=== PATIENT | male | born 1995 ===

== ENCOUNTER 2017-04-27 23:58 | Emergency (ER) | payer MEDICAID ==
[2017-04-28 00:13] VITALS: O2SAT 98
[2017-04-28] MEDS ORDERED: Aspirin 325 mg EC Tablets PO STA (00:23)
[2017-04-28] MEDS ORDERED: Aspirin 325 mg EC Tablets PO ONE (00:40)
[2017-04-28 00:56] LABS: SQUAMOUS EPITHIAL < 1 /hpf (0-5); URINE BILIRUBIN NEGATIVE (NEGATIVE); URINE BLOOD NEGATIVE (NEGATIVE); URINE CLARITY Clear (Clear); URINE COLOR Yellow (YELLOW); URINE GLUCOSE (UA) NORMAL (Normal); URINE LEUKOCYTE ESTERASE NEG Leu/uL (Negative); URINE NITRATE NEGATIVE (NEGATIVE); URINE PROTEIN NEGATIVE (NEGATIVE); URINE UROBILINOGEN NORMAL mg/dL (0.2-1.0)
[2017-04-28 01:15] LABS: BASO # 0.1 K/uL (0.0-0.2); BASO % 0.7 % (0.0-2.0); EOS # 0.4 K/uL (0.0-0.7); HEMOGLOBIN 14.4 g/dL (12.0-18.0); LYMPH # 2.9 K/uL (1.0-4.3); LYMPH % 24.4 % (20.0-40.0); MEAN CELL VOLUME 90.5 fL (80.0-94.0); MEAN CORPUSCULAR HEMOGLOBIN 30.4 pg (27.0-31.0); MEAN CORPUSCULAR HGB CONC 33.6 g/dL (33.0-37.0); MEAN PLATELET VOLUME 7.8 fL (7.2-11.7); MONO % 8.4 % (0.0-10.0); NEUT # 7.5 K/uL (1.8-7.0); NEUT % 63.5 % (50.0-75.0); NRBC % 0.1 % (0.0-2.0); RBC 4.74 Mil/uL (4.40-5.90); RED CELL DISTRIBUTION WIDTH 12.7 % (11.5-14.5); WHITE BLOOD COUNT 11.8 K/uL (4.8-10.8)
[2017-04-28 01:25] LABS: GFR AFRICAN-AMERICAN > 60; GFR NON-AFRICAN AMERICAN > 60
[2017-04-28 01:26] LABS: BARBITURATES, UR NEGATIVE (NEGATIVE)
[2017-04-28 01:26] LABS: ALT/SGPT 26 U/L (21-72); AST/SGOT 31 U/L (17-59); BLOOD UREA NITROGEN 15 mg/dL (9-20); CALCIUM 9.5 mg/dl (8.6-10.4)
[2017-04-28 01:27] LABS: BENZODIAZEPINES, UR NEGATIVE (NEGATIVE)
[2017-04-28 01:30] LABS: OPIATES, UR NEGATIVE (NEGATIVE); PHENCYCLIDINE, UR NEGATIVE (NEGATIVE)
[2017-04-28 01:37] LABS: B-TYPE NATRIURETIC PEPTIDE 26.5 pg/mL (0-450)
--- NOTE | 2017-04-28 01:38 | C.PDOC ---
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 Patient denies any Hx of cardiac problems, nausea, or vomiting. Time Seen by Provider: 04/28/17 00:20 Chief Complaint (Nursing): Chest Pain History Per: Patient History/Exam Limitations: no limitations Onset/Duration Of Symptoms: Days (7) Current Symptoms Are (Timing): Still Present Associated Symptoms: Dyspnea, Syncope (Near). denies: Nausea Modifying Factors: None Exacerbating Factors: None Alleviating Factors: None Recent travel outside of the [place]: No Past Medical History Reviewed: Historical Data, Nursing Documentation, Vital Signs Vital Signs: Last Vital Signs Temp 97.9 F 04/28/17 00:11 Pulse 92 H 04/28/17 03:00 Resp 18 04/28/17 03:00 BP 119/56 L 04/28/17 03:00 Pulse Ox 98 04/28/17 03:20 - Medical History PMH: No Chronic Diseases Surgical History: No Surg Hx Family History: States: Unknown Family Hx - Social History Hx Alcohol Use: Yes Hx Substance Use: No - Immunization History Hx Tetanus Toxoid Vaccination: No Hx Influenza Vaccination: No Hx Pneumococcal Vaccination: No Review Of Systems Cardiovascular: Positive for: Chest Pain Respiratory: Positive for: Shortness of Breath Gastrointestinal: Negative for: Nausea, Vomiting Neurological: Positive for: Other (Near syncope) Physical Exam - Physical Exam Appears: Non-toxic, Other (Morbidly obese) Skin: Normal Color, Warm, Dry Head: Atraumatic, Normacephalic Oral Mucosa: Moist Chest: Symmetrical, No Tenderness Cardiovascular: Rhythm Regular, No Murmur Respiratory: Normal Breath Sounds, No Rales, No Rhonchi, No Wheezing Gastrointestinal/Abdominal: Soft, No Tenderness Extremity: Normal ROM, No Tenderness, No Pedal Edema Neurological/Psych: Oriented x3, Normal Speech, Normal Cognition ED Course And Treatment - Laboratory Results Result Diagrams: 04/28/17 01:04 04/28/17 01:04 Lab Interpretation: Abnormal (mild leukocytosis, d-dimer neg.) ECG: Interpreted By Me ECG Rhythm: Sinus Rhythm ECG Interpretation: Normal Rate From EC O2 Sat by Pulse Oximetry: 98 Pulse Ox Interpretation: Normal - Radiology CXR: Interpreted by Me CXR Interpretation: Yes: No Acute Disease, Cardiomegaly Progress Note: EKG and CXR ordered. Ecotrin and lovenox administered. Repeat EKG at 05:00 shows NSR 76 bpm Reevaluation Time: 02:02 Reassessment Condition: Improved - Physician Consult Information Outcome Of Conversation: 0200: d/w Dr. Stone and rosie Frederick to tele Obs Medical Decision Making Medical Decision Making: asa and lovenox given presume LVH from from chronic HTN and RVH from prob ELINOR high risk for acute cardiac with morbid obesity 158 kg. Plan stress test or equivelent eval and treat for ELINOR Disposition Doctor Will See Patient In The: Hospital Counseled Patient/Family Regarding: Studies Performed, Diagnosis - Disposition Disposition: HOSPITALIZED Disposition Time: 02:03 Condition: GOOD - Clinical Impression Clinical Impression: Chest pain, Near syncope - Scribe Statement The provider has reviewed the documentation as recorded by the Scribe Damion Ku All medical record entries made by the Scribe were at my direction and personally dictated by me. I have reviewed the chart and agree that the record accurately reflects my personal performance of the history, physical exam, medical decision making, and the department course for this patient. I have also personally directed, reviewed, and agree with the discharge instructions and disposition.
[2017-04-28 01:44] LABS: PARTIAL THROMBOPLASTIN TIME 30 SECONDS (21-34); PROTHROMBIN TIME 11.7 SECONDS (9.7-12.2)
[2017-04-28 01:49] LABS: D DIMER < 200 ng/mlDDU (0-243)
[2017-04-28] MEDS ORDERED: Enoxaparin 40 mg Syringe SC STA (01:55)
[2017-04-28] MEDS ORDERED: Enoxaparin 60 mg Syringe ONE (02:03)
--- NOTE | 2017-04-28 02:20 | CP.PCM.HP ---
History of Present Illness - History of Present Illness History of Present Illness: Medicine Note CC: chest pain HPI: 21M with no significant PMHx presents to the ED with chest pain. 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 Patient works moving packages off of trucks. While he was lifting the box, he started to have midsternal chest pain, sharp in nature, non- radiating. Pain lasted for 2-5 minutes and subsided. Denied any associated dizziness, lightheadedness, syncope , diaphoresis. Patient reports he had this pain a few months back but it subsided and he did not come to the hospital for it. Denied fever, chills, headache, chest pain, abdominal pain, n/v/d/c, or urinary symptoms. PMHx: Denied PSHx: Denied Meds: Denied All: NKDA SHx: Denied any tobacco, drinks alcohol socially, denied illicit drug use FHx: Unremarkable Present on Admission - Present on Admission Any Indicators Present on Admission: No Review of Systems - Constitutional Constitutional: absent: Chills, Weakness - EENT Eyes: absent: Change in Vision Ears: absent: Tinnitus Nose/Mouth/Throat: absent: Nasal Discharge - Cardiovascular Cardiovascular: absent: Chest Pain, Chest Pain at Rest - Respiratory Respiratory: absent: Cough, Dyspnea - Gastrointestinal Gastrointestinal: absent: Abdominal Pain, Nausea, Vomiting - Genitourinary Genitourinary: absent: Dysuria, Hematuria - Musculoskeletal Musculoskeletal: absent: Back Pain - Integumentary Integumentary: absent: Alopecia, Skin Pain, Wounds - Neurological Neurological: absent: Syncope, Weakness - Psychiatric Psychiatric: absent: Anxiety - Endocrine Endocrine: absent: Polyphagia, Polyuria - Hematologic/Lymphatic Hematologic: absent: Easy Bleeding, Easy Bruising Past Patient History - Past Social History Smoking Status: Heavy Smoker > 10 Cigarettes Daily - PSYCHIATRIC Hx Substance Use: No - SURGICAL HISTORY Hx Surgeries: No Meds Allergies/Adverse Reactions: Allergies Allergy/AdvReac Type Severity Reaction Status Date / Time kiwi Allergy Verified 04/28/17 00:16 Penicillins Allergy Verified 04/28/17 00:16 walnut Allergy Verified 04/28/17 00:16 Physical Exam - Constitutional Appears: No Acute Distress - Head Exam Head Exam: NORMAL INSPECTION, NORMOCEPHALIC - Eye Exam Eye Exam: EOMI, Normal appearance, PERRL - ENT Exam ENT Exam: Mucous Membranes Moist - Respiratory Exam Respiratory Exam: Clear to Auscultation Bilateral, NORMAL BREATHING PATTERN. absent: Wheezes - Cardiovascular Exam Cardiovascular Exam: REGULAR RHYTHM, RRR, +S1, +S2 - GI/Abdominal Exam GI & Abdominal Exam: Normal Bowel Sounds, Soft. absent: Distended, Tenderness - Extremities Exam Extremities exam: Positive for: normal inspection. Negative for: pedal edema, tenderness, pedal pulses present - Neurological Exam Neurological exam: Alert, CN II-XII Intact, Oriented x3 - Skin Skin Exam: Dry, Intact, Normal Color, Warm Results - Vital Signs Recent Vital Signs: Last Vital Signs Temp 97.9 F 04/28/17 00:11 Pulse 92 H 04/28/17 00:25 Resp 19 04/28/17 00:25 BP 128/56 L 04/28/17 00:30 Pulse Ox 98 04/28/17 02:04 - Labs Result Diagrams: 04/28/17 01:04 04/28/17 01:04 Labs: Laboratory Results - last 24 hr 04/28/17 04/28/17 04/28/17 00:47 00:47 01:04 WBC 11.8 H RBC 4.74 Hgb 14.4 Hct 42.9 MCV 90.5 MCH 30.4 MCHC 33.6 RDW 12.7 Plt Count 272 MPV 7.8 Neut % (Auto) 63.5 Lymph % (Auto) 24.4 [place] % (Auto) 8.4 Eos % (Auto) 3.0 Baso % (Auto) 0.7 Neut # 7.5 H Lymph # 2.9 [place] # 1.0 H Eos # 0.4 Baso # 0.1 PT INR APTT D-Dimer, Quantitative Sodium Potassium Chloride Carbon Dioxide Anion Gap BUN Creatinine Est GFR ( Amer) Est GFR (Non-Af Amer) Random Glucose Calcium Total Bilirubin AST ALT Alkaline Phosphatase Troponin I NT-Pro-B Natriuret Pep Total Protein Albumin Globulin Albumin/Globulin Ratio Urine Color Yellow Urine Clarity Clear Urine pH 5.0 Ur Specific [place] 1.021 Urine Protein Negative Urine Glucose (UA) Normal Urine Ketones Negative Urine Blood Negative Urine Nitrate Negative Urine Bilirubin Negative Urine Urobilinogen Normal Ur Leukocyte Esterase Neg Urine WBC (Auto) 1 Urine RBC (Auto) < 1 Ur Squamous Epith Cells < 1 Urine Opiates Screen Negative Urine Methadone Screen Negative Ur Barbiturates Screen Negative Ur Phencyclidine Scrn Negative Ur Amphetamines Screen Negative U Benzodiazepines Scrn Negative U Oth Cocaine Metabols Negative U Cannabinoids Screen Negative 04/28/17 04/28/17 01:04 01:04 WBC RBC Hgb Hct MCV MCH MCHC RDW Plt Count MPV Neut % (Auto) Lymph % (Auto) [place] % (Auto) Eos % (Auto) Baso % (Auto) Neut # Lymph # [place] # Eos # Baso # PT 11.7 INR 1.0 APTT 30 D-Dimer, Quantitative < 200 Sodium 141 Potassium 4.3 Chloride 104 Carbon Dioxide 27 Anion Gap 14 BUN 15 Creatinine 1.0 Est GFR ( Amer) > 60 Est GFR (Non-Af Amer) > 60 Random Glucose 91 Calcium 9.5 Total Bilirubin 0.9 AST 31 ALT 26 Alkaline Phosphatase 97 Troponin I < 0.0120 NT-Pro-B Natriuret Pep 26.5 Total Protein 7.9 Albumin 4.0 Globulin 3.9 Albumin/Globulin Ratio 1.0 Urine Color Urine Clarity Urine pH Ur Specific [place] Urine Protein Urine Glucose (UA) Urine Ketones Urine Blood Urine Nitrate Urine Bilirubin Urine Urobilinogen Ur Leukocyte Esterase Urine WBC (Auto) Urine RBC (Auto) Ur Squamous Epith Cells Urine Opiates Screen Urine Methadone Screen Ur Barbiturates Screen Ur Phencyclidine Scrn Ur Amphetamines Screen U Benzodiazepines Scrn U Oth Cocaine Metabols U Cannabinoids Screen Assessment & Plan - Assessment and Plan (Free Text) Assessment: 21M with no significant PMHx presents to the ED with chest pain. Plan: Chest Pain r/o ACS * EKG: NSR * 1st ROSY - negative, BNP -WNL * TSH, T3, Lipid panel - except HDL which is 29, Hgba1c - WNL * F/U ROMIs, EKG, ECHO Morbid Obesity Prophylactic Measures * GI PPX: Protonix 40mg PO daily * DVT PPX: SCDs, lovenox 40mg SC daily DW Stewart Evangelista DO, PGY-1
[2017-04-28 03:46] VITALS: RESP 18
[2017-04-28 05:18] LABS: MAGNESIUM 1.9 mg/dL (1.6-2.3)
[2017-04-28 05:49] LABS: T3 1.86 nmol/L (1.49-2.60)
--- NOTE | 2017-04-28 09:31 | RAD ---
PROCEDURE: CHEST RADIOGRAPH, 1 VIEW HISTORY: Shortness of breath COMPARISON: None available. FINDINGS: LUNGS: Mild venous congestion. Mild right hilar prominence. PLEURA: No pneumothorax or pleural fluid seen. CARDIOVASCULAR: Normal. OSSEOUS STRUCTURES: No significant abnormalities. VISUALIZED UPPER ABDOMEN: Normal. OTHER FINDINGS: None. IMPRESSION: Mild venous congestion. Mild right hilar prominence.
[2017-04-28] MEDS ORDERED: Pantoprazole 40 mg EC Tab PO SCH (10:00)
[2017-04-28] MEDS ORDERED: Enoxaparin 40 mg Syringe SC SCH (10:00)
[2017-04-28] MEDS ORDERED: Albuterol-Ipratrop 3 mg / 0.5 (3 ml) UD INH STA (10:19)
[2017-04-28 10:49] LABS: MAGNESIUM 2.1 mg/dL (1.6-2.3)
[2017-04-28 10:57] LABS: CK-MB 1.85 ng/mL (0.0-3.38)
[2017-04-28] MEDS ORDERED: Albuterol-Ipratrop 3 mg / 0.5 (3 ml) UD ONE (11:11)
[2017-04-28 12:17] LABS: ALBUMIN 3.7 g/dL (3.5-5.0)
[2017-04-28] MEDS ORDERED: Enoxaparin 40 mg Syringe ONE (12:18)
[2017-04-28] MEDS ORDERED: Pantoprazole 40 mg EC Tab PO ONE (12:18)
[2017-04-28 12:20] LABS: AST/SGOT 52 U/L (17-59); BLOOD UREA NITROGEN 15 mg/dL (9-20); GFR AFRICAN-AMERICAN > 60; GFR NON-AFRICAN AMERICAN > 60
[2017-04-28 12:21] LABS: ALT/SGPT 28 U/L (21-72); CALCIUM 8.8 mg/dl (8.6-10.4)
--- NOTE | 2017-04-28 16:49 | CARD ---
APPROVED REPORT EXAM: Two-dimensional and M-mode echocardiogram with Doppler and color Doppler. Other Information Quality : GoodRhythm : NSR INDICATION Chest Pain Syncope RISK FACTORS Obesity M-Mode DIMENSIONS RVDd1.77 (2.1-3.2cm)Left Atrium (MM)3.71 (2.5-4.0cm) IVSd1.18 (0.7-1.1cm)Aortic Root3.24 (2.2-3.7cm) LVDd5.20 (4.0-5.6cm)Aortic Cusp Exc.1.87 (1.5-2.0cm) PWd1.18 (0.7-1.1cm)FS (%) 30 % LVDs3.61 (2.0-3.8cm)LVEF (%)58 (>50%) Mitral Valve MV E Tgspyzqu162.5cm/sMV A Zjfkgkdh16.7cm/sE/A ratio2.1 TDI E/Lateral E'0.0E/Medial E'0.0 Tricuspid Valve TR Peak Aswqusox678kw/sTR Peak Gr.[id number] LEFT VENTRICLE The left ventricle is normal size. There is normal left ventricular wall thickness. The left ventricular function is normal. The left ventricular ejection fraction is within the normal range. There is normal LV segmental wall motion. The left ventricular diastolic function is normal. RIGHT VENTRICLE The right ventricle is normal size. There is normal right ventricular wall thickness. The right ventricular systolic function is normal. ATRIA The left atrium size is normal. The right atrium size is normal. AORTIC VALVE The aortic valve is normal in structure. No aortic regurgitation is present. MITRAL VALVE The mitral valve is normal in structure. GREAT VESSELS The aortic root is normal in size. The IVC is normal in size and collapses >50% with inspiration. <Conclusion> The left ventricle is normal size. There is normal left ventricular wall thickness. The left ventricular function is normal. The left ventricular ejection fraction is within the normal range. There is normal LV segmental wall motion. The left ventricular diastolic function is normal.
[2017-04-28 17:32] VITALS: BP 132/80; PULSE 71; TEMP 98.1
--- NOTE | 2017-04-28 18:24 | CP.PCM.DIS ---
Provider - Provider Date of Admission: 04/28/17 01:58 Attending physician: Baudilio Stone Jr, MD Time Spent in preparation of Discharge (in minutes): 45 Diagnosis - Discharge Diagnosis (1) Chest pain Status: Resolved Comment: see summary for full details Hospital Course - Lab Results Lab Results: Most Recent Lab Values WBC 11.8 K/uL (4.8-10.8) H 04/28/17 01:04 RBC 4.74 Mil/uL (4.40-5.90) 04/28/17 01:04 Hgb 14.4 g/dL (12.0-18.0) 04/28/17 01:04 Hct 42.9 % (35.0-51.0) 04/28/17 01:04 MCV 90.5 fL (80.0-94.0) 04/28/17 01:04 MCH 30.4 pg (27.0-31.0) 04/28/17 01:04 MCHC 33.6 g/dL (33.0-37.0) 04/28/17 01:04 RDW 12.7 % (11.5-14.5) 04/28/17 01:04 Plt Count 272 K/uL (130-400) 04/28/17 01:04 MPV 7.8 fL (7.2-11.7) 04/28/17 01:04 Neut % (Auto) 63.5 % (50.0-75.0) 04/28/17 01:04 Lymph % (Auto) 24.4 % (20.0-40.0) 04/28/17 01:04 [place] % (Auto) 8.4 % (0.0-10.0) 04/28/17 01:04 Eos % (Auto) 3.0 % (0.0-4.0) 04/28/17 01:04 Baso % (Auto) 0.7 % (0.0-2.0) 04/28/17 01:04 Neut # 7.5 K/uL (1.8-7.0) H 04/28/17 01:04 Lymph # 2.9 K/uL (1.0-4.3) 04/28/17 01:04 [place] # 1.0 K/uL (0.0-0.8) H 04/28/17 01:04 Eos # 0.4 K/uL (0.0-0.7) 04/28/17 01:04 Baso # 0.1 K/uL (0.0-0.2) 04/28/17 01:04 PT 11.7 SECONDS (9.7-12.2) 04/28/17 01:04 INR 1.0 04/28/17 01:04 APTT 30 SECONDS (21-34) 04/28/17 01:04 D-Dimer, Quantitative < 200 ng/mlDDU (0-243) 04/28/17 01:04 Sodium 137 mmol/L (132-148) 04/28/17 10:21 Potassium 3.8 mmol/L (3.6-5.2) 04/28/17 10:21 Chloride 101 mmol/L (98-107) 04/28/17 10:21 Carbon Dioxide 24 mmol/L (22-30) 04/28/17 10:21 Anion Gap 15 (10-20) 04/28/17 10:21 BUN 15 mg/dL (9-20) 04/28/17 10:21 Creatinine 0.8 MG/DL (0.8-1.5) 04/28/17 10:21 Est GFR ( Amer) > 60 04/28/17 10:21 Est GFR (Non-Af Amer) > 60 04/28/17 10:21 Random Glucose 96 mg/dL (75-110) 04/28/17 10:21 Hemoglobin A1c 5.5 % (4.2-6.5) 04/28/17 04:53 Calcium 8.8 mg/dl (8.6-10.4) 04/28/17 10:21 Phosphorus 3.7 mg/dL (2.5-4.5) 04/28/17 10:21 Magnesium 2.1 mg/dL (1.6-2.3) 04/28/17 10:21 Total Bilirubin 1.3 mg/dL (0.2-1.3) 04/28/17 10:21 AST 52 U/L (17-59) 04/28/17 10:21 ALT 28 U/L (21-72) 04/28/17 10:21 Alkaline Phosphatase 93 U/L (38-126) 04/28/17 10:21 Total Creatine Kinase 336 U/L (55-170) H 04/28/17 10:21 CK-MB (Mass) 1.85 ng/mL (0.0-3.38) 04/28/17 10:21 Troponin I < 0.0120 ng/mL (0.00-0.120) 04/28/17 01:04 Troponin I, Quant < 0.0120 ng/mL (0.00-0.120) 04/28/17 10:21 NT-Pro-B Natriuret Pep 26.5 pg/mL (0-450) 04/28/17 01:04 Total Protein 7.5 g/dL (6.3-8.3) 04/28/17 10:21 Albumin 3.7 g/dL (3.5-5.0) 04/28/17 10:21 Globulin 3.8 gm/dL (2.2-3.9) 04/28/17 10:21 Albumin/Globulin Ratio 1.0 (1.0-2.1) 04/28/17 10:21 Triglycerides 88 mg/dL (0-149) 04/28/17 04:53 Cholesterol 171 mg/dL (0-199) 04/28/17 04:53 LDL Cholesterol Direct 127 mg/dL (0-129) 04/28/17 04:53 HDL Cholesterol 29 mg/dL (30-70) L 04/28/17 04:53 Total T3 1.86 nmol/L (1.49-2.60) 04/28/17 04:53 TSH 3rd Generation 0.88 mIU/L (0.46-4.68) 04/28/17 04:53 Urine Color Yellow (YELLOW) 04/28/17 00:47 Urine Clarity Clear (Clear) 04/28/17 00:47 Urine pH 5.0 (5.0-8.0) 04/28/17 00:47 Ur Specific [place] 1.021 (1.003-1.030) 04/28/17 00:47 Urine Protein Negative mg/dL (NEGATIVE) 04/28/17 00:47 Urine Glucose (UA) Normal mg/dL (Normal) 04/28/17 00:47 Urine Ketones Negative mg/dL (NEGATIVE) 04/28/17 00:47 Urine Blood Negative (NEGATIVE) 04/28/17 00:47 Urine Nitrate Negative (NEGATIVE) 04/28/17 00:47 Urine Bilirubin Negative (NEGATIVE) 04/28/17 00:47 Urine Urobilinogen Normal mg/dL (0.2-1.0) 04/28/17 00:47 Ur Leukocyte Esterase Neg [place]/uL (Negative) 04/28/17 00:47 Urine WBC (Auto) 1 /hpf (0-5) 04/28/17 00:47 Urine RBC (Auto) < 1 /hpf (0-3) 04/28/17 00:47 Ur Squamous Epith Cells < 1 /hpf (0-5) 04/28/17 00:47 Urine Opiates Screen Negative (NEGATIVE) 04/28/17 00:47 Urine Methadone Screen Negative (NEGATIVE) 04/28/17 00:47 Ur Barbiturates Screen Negative (NEGATIVE) 04/28/17 00:47 Ur Phencyclidine Scrn Negative (NEGATIVE) 04/28/17 00:47 Ur Amphetamines Screen Negative (NEGATIVE) 04/28/17 00:47 U Benzodiazepines Scrn Negative (NEGATIVE) 04/28/17 00:47 U Oth Cocaine Metabols Negative (NEGATIVE) 04/28/17 00:47 U Cannabinoids Screen Negative (NEGATIVE) 04/28/17 00:47 - Hospital Course Hospital Course: "CC: chest pain HPI: 21M with no significant PMHx presents to the ED with chest pain. 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 Patient works moving packages off of trucks. While he was lifting the box, he started to have midsternal chest pain, sharp in nature, non-radiating. Pain lasted for 2-5 minutes and subsided. Denied any associated dizziness, lightheadedness, syncope , diaphoresis. Patient reports he had this pain a few months back but it subsided and he did not come to the hospital for it. Denied fever, chills, headache, chest pain, abdominal pain, n/v/d/c, or urinary symptoms." In ED patient's EKG was NSR. Patient had two negative troponins. Patient was given duonebs for mild expiratory wheezing. Patient felt much better after. Patient was able to eat and chest pain subsided. Patient cleared for discharge as per Dr. Stone. Patient to come back to Emergency Room immediately if symptoms worsen/return. This is a summary of the hospital course. Please see chart for full details. Discharge Exam - Head Exam Head Exam: NORMAL INSPECTION, NORMOCEPHALIC - Eye Exam Eye Exam: EOMI, Normal appearance, PERRL - ENT Exam ENT Exam: Mucous Membranes Moist - Neck Exam Neck exam: Full Rom - Respiratory Exam Respiratory Exam: Clear to PA & Lateral, NORMAL BREATHING PATTERN. absent: Rales, Rhonchi, Wheezes, Respiratory Distress, Stridor - Cardiovascular Exam Cardiovascular Exam: REGULAR RHYTHM, RRR. absent: Systolic Murmur - GI/Abdominal Exam GI & Abdominal Exam: Normal Bowel Sounds. absent: Distended, Firm, Guarding - Extremities Exam Extremities exam: full ROM, normal inspection - Back Exam Back exam: NORMAL INSPECTION - Neurological Exam Neurological exam: Alert, Oriented x3 - Psychiatric Exam Psychiatric exam: Normal Affect, Normal Mood - Skin Skin Exam: Intact, Normal Color, Warm Discharge Plan - Follow Up Plan Condition: GOOD Disposition: HOME/ ROUTINE Additional Instructions: Patient cleared for discharge as per Dr. Stone. Patient to return to Emergency Room immediately if symptoms return or worsen. No medications to continue or start. Instructions explained to patient who understood.
--- NOTE | 2017-05-01 10:55 | CARD ---
APPROVED REPORT EKG Measurement Heart [id number] CT 180P17 [id number] <Conclusion> Normal sinus rhythm Normal ECG
--- NOTE | 2017-05-01 10:58 | CARD ---
APPROVED REPORT EKG Measurement Heart [id number] MI 174P18 [id number] <Conclusion> Normal sinus rhythm Normal ECG
--- NOTE | 2017-05-01 10:59 | CARD ---
APPROVED REPORT EKG Measurement Heart [id number] ND 158P50 [id number] <Conclusion> Normal sinus rhythm Normal ECG
== END 2017-04-28 18:22 | disposition short-term general hospital (02) ==
LOC: C.ER 23:58 → C.9E 04-28 01:58 → UNDOADMOB 04-28 01:58 → UNDODISOB 04-28 18:20
DX: R07.9 Chest pain, unspecified (principal); R55 Syncope and collapse; E66.01 Morbid (severe) obesity due to excess calories; Z68.43 Body mass index [BMI] 50.0-59.9, adult; F17.219 Nicotine dependence, cigarettes, with unspecified nicotine-induced disorders; I10 Essential (primary) hypertension; X50.0XXA Overexertion from strenuous movement or load, initial encounter
CPT/HCPCS: 36415; 71010; 80053; 80061; 80324; 80345; 80346; 80349; 80353; 80358; 80361; 81001; 83036; 83735; 83880; 83992; 84100; 84443; 84480; 84484; 85025; 85378; 85610; 85730; 93005; 93306; 94640; 96372; 99285; J1650